=== PATIENT | male | born 1990 | race Caucasian/White ===

== ENCOUNTER 2024-10-02 23:39 | Emergency (ER) | payer OTHER, SELFPAY ==
[2024-10-02 23:49] VITALS: BP 133/98; BMI 26.5
[2024-10-03 00:45] LABS: % Basophils 0.5 % (0-2); % Immature Granulocytes 0.4 % (0-0.5); % Lymphocytes 25.4 % (20.5-51.1); % Monocytes 4.3 % (1.7-9.3); % Neutrophils 68.4 % (42.2-75.2); Absolute Basophils 0.1 10^3/uL (0-0.2); Absolute Eosinophils 0.1 10^3/uL (0-0.7); Absolute Immature Granulocytes 0.1 10^3/uL (0-0.05); Absolute Lymphocytes 3.2 10^3/uL (1.2-3.4); Absolute Monocytes 0.6 10^3/uL (0.1-0.6); Absolute Neutrophils 8.7 10^3/uL (1.4-6.5); Hematocrit 45.2 % (39.0-52.0); Hemoglobin 15.5 g/dL (13.0-18.0); Mean Corp Hgb Conc. 34.3 g/dL (33.0-37.0); Mean Corpuscular Hgb 30.5 pg (27.0-31.0); Mean Corpuscular Volume 88.8 fL (80.0-94.0); Mean Platelet Volume 8.3 fL (7.4-10.4); Nucleated Red Blood Cells % 0 % (-); Platelet Count 185 10^3/uL (130-400); Red Blood Cell Count 5.09 10^6/uL (4.70-6.10); Red Cell Dist. Width 13.8 % (11.5-14.5); White Blood Cell Count 12.8 10^3/uL (4.8-10.8)
[2024-10-03 00:54] LABS: ALT (SGPT) 24 U/L (0-50); AST (SGOT) 40 U/L (17-59); Acetaminophen < 10 ug/ml (10-30); Albumin 5.4 g/dl (3.5-5.0); Alcohol 188 mg/dl; Alkaline Phosphatase 57 U/L (38-126); Blood Urea Nitrogen 15 mg/dl (9-20); Calcium 9.6 mg/dl (8.4-10.2); Carbon Dioxide 25 mmol/L (22-30); Chloride 103 mmol/L (98-107); Estimated Creatinine Clearance 117 ml/min; Glucose 112 mg/dl (70-99); Potassium 4.6 mmol/L (3.5-5.1); Salicylate < 1.0 mg/dl (2.0-20.0); Sodium 141 mmol/L (135-145); Total Bilirubin 1.3 mg/dl (0.2-1.3); Total Protein 8.6 g/dl (6.3-8.2); eGFR > 60.00
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
[2024-10-03 01:53] LABS: Urine Albumin 2+ (Neg - Trace); Urine Bilirubin Negative (Negative); Urine Character Clear (Clear); Urine Color Yellow; Urine Glucose Negative (Negative); Urine Ketone Negative (Negative); Urine Leukocyte Negative (Negative); Urine Nitrite Negative (Negative); Urine Occult Blood Negative (Negative); Urine Urobilinogen Negative (Neg - 1+)
[2024-10-03 02:13] LABS: Lithium 0.5 mmol/L (0.6-1.2)
[2024-10-03 02:28] LABS: Amphetamines Negative (Negative); Barbiturates Negative (Negative); Benzodiazepines Negative (Negative); Buprenorphine Negative (Negative); Cocaine Negative (Negative); Marijuana Negative (Negative); Methadone Negative (Negative); Methamphetamines Negative (Negative); Opiates Negative (Negative); Phencyclidine Negative (Negative); Tricyclic Antidepressants Positive (Negative)
[2024-10-03 02:46] LABS: Urine Mucus Few; Urine Red Blood Cell 0-2 /HPF (0-2); Urine Squamous Cell 0-2 /LPF (Few); Urine White Cell 0-2 /HPF (0-5)
[2024-10-03 09:20] VITALS: BP 132/92
[2024-10-03] MEDS: NEURONTIN 800 MG PO (10:39)
[2024-10-03] MEDS: SEROQUEL 200 MG PO (10:39)
[2024-10-03] MEDS: CATAPRES 0.1 MG PO (10:39)
[2024-10-03] MEDS: KLONOPIN 0.5 MG PO (10:41)
[2024-10-03] MEDS: SUBUTEX 2 MG SL (10:41)
[2024-10-03] MEDS: EFFEXOR XR 150 MG PO (11:00)
[2024-10-03] MEDS: SUBUTEX 6 MG SL (11:15)
== END 2024-10-03 11:25 ==
LOC: EMR 23:39
PROVIDERS: EMERGENCY PHYSICIAN Student in an Organized Health Care Education/Training Program
DX: F23 Brief psychotic disorder (principal); F33.9 Major depressive disorder, recurrent, unspecified; F90.9 Attention-deficit hyperactivity disorder, unspecified type; Z76.5 Malingerer [conscious simulation]; F11.20 Opioid dependence, uncomplicated; F17.200 Nicotine dependence, unspecified, uncomplicated; F43.10 Post-traumatic stress disorder, unspecified; F41.9 Anxiety disorder, unspecified; G89.29 Other chronic pain; M25.561 Pain in right knee; Z56.0 Unemployment, unspecified
CPT/HCPCS: 99285; 70160; 70450; 80053; 80143; 80178; 80179; 80306; 81003; 81015; 82077; 85025

== ENCOUNTER 2025-03-06 20:24 | Emergency (ER) | payer OTHER, SELFPAY ==
[2025-03-06 20:31] VITALS: BP 138/84; BMI 27.3
--- NOTE | 2025-03-06 20:56 | ED.GENMED ---
History of Present Illness
General
Chief Complaint: Crisis Evaluation
Source: patient
Exam Limitations: none
Time Seen by Provider: 03/06/25 20:41
History of Present Illness
History of Present Illness:
34 male presents with depression history of the same has been admitted previously been drinking today apparently meds been changed, denies being actively suicidal would like to get some help, he goes to [facility]
Denies any overdose
Past History
Past History
ED Past Medical History: Psychiatric and Other (Chronic right knee pain)
ED Past Surgical History: Orthopedic (Arthroscopy right knee October 2011)
Social History
Tobacco: Smoker
Alcohol: Occasional
Drug: Narcotics
Personal: Single
Living: with family
Employment: Not employed
Family History
Family History: Other (Noncontributory)
Review of Systems
Review of Systems
All Other Systems: Not applicable
Constitutional: Denies fever or fatigue
Psychiatric: Reports depression and anxiety; Denies suicidal
Phy Exam
Physical Exam
Physical Exam:
Physical Exam
General: Intoxicated male cooperative
Neck: No jaundice no tongue
Heart: s1/s2 regular rate and rhythm, no murmur. equal radial pulses.
Lungs: no acute respiratory distress. clear bilaterally
Neuro: alert and oriented. no focal neurological deficits
Skin: no rash
Psychiatric: Flat affect cooperative mid to depression not suicidal
Extremities: no edema.
Course
Orders/Labs/Results
Orders:
Orders
03/06/25 20:38
1:1 Observation - Suicide/ Violent Behavior As Directed
Crisis Consult Urgent
Reason for Consult: + SI, depression
03/06/25 20:46
Alcohol Urgent
Basic Metabolic Panel Urgent
Complete Blood Count/With Diff Urgent
Fentanyl, Urine Urgent
Manual Differential Urgent
Urine Drug Abuse Screen Urgent
Date Specimen was Collected: 03/06/25
Time Specimen was Collected: 20:39
03/07/25 00:51
Clonazepam [Klonopin] 1 mg PO NOW STA
Gabapentin [Neurontin] 600 mg PO NOW STA
Quetiapine Fumarate [Seroquel] 200 mg PO NOW STA
Abnormal Lab Results
03/06/25
20:46
MCH 31.6 H pg
(27.0-31.0)
Segmented Neutrophils 34 L %
(42-75)
Glucose 118 H mg/dl
(70-99)
Ur Tricyclics Screen Positive H
(Negative)
U Benzodiazepines Scrn Positive H
(Negative)
03/06/25 20:46
03/06/25 20:46
Vital Signs
Initial and Last Documented VS:
Initial Vital Signs
Pulse Resp BP Pulse Ox
84 18 138/84 94
03/06/25 20:31 03/06/25 20:31 03/06/25 20:31 03/06/25 20:31
Last Documented Vital Signs
Pulse Resp BP Pulse Ox
84 18 138/84 94
03/06/25 20:31 03/06/25 20:31 03/06/25 20:31 03/06/25 20:59
MDM/Problems Addressed
Differential Diagnosis Includes:
Intoxication depression anxiety not suicidal
MDM/Problems Addressed:
Substance abuse, mental illness
Chronic conditions affecting care: Psychiatric illness
Acute Exacerbation and/or Progression of Chronic Illness: Psychiatric illness
*Pulse Oximetry
SaO2: 94
Oxygen Mode of Delivery: Room air
Patient hypoxic: no
*Critical Care Note
Total Time (30-74mins, 75-104mins- exclusive of procedures): Not Applicable
Update Note
Update Note:
10 PM reviewed with crisis patient cleared for discharge has follow-up arranged he wants to get his meds adjusted as an outpatient which would be most appropriate for him, he is intoxicated here we will monitor until he is more sober and/or has an
adult to take him home
ED Attending Note
-
Portions of this chart may have been created with voice recognition software.� Occasional wrong word or��sound alike� substitutions may have occurred due to the inherent limitations of voice recognition software.
Discharge Plan
Departure
Patient Disposition: Home (Routine Discharge)
Date of Disposition: 03/06/25
Time of Disposition: 23:22
Patient with high blood pressure during this ER visit?: No
Condition: Good
Discharge Problem:
Anxiety
Instructions: Anxiety, Adult (DC), Drug and Alcohol Abuse Information
Prescriptions:
No Action
clonazepam 0.5 mg Tablet
1 mg PO DAILY
quetiapine [Seroquel] 200 mg Tablet
200 mg PO HS
buprenorphine-naloxone 8-2 mg Film
1 film BUCCAL BID
venlafaxine 37.5 mg Capsule,Extended Release 24hr
37.5 mg PO DAILY
Rx Instructions:
03/06/2025, take w/ 75 mg for a total of 112.5 mg.
venlafaxine 75 mg Capsule,Extended Release 24hr
75 mg PO DAILY
Rx Instructions:
03/06/2025, take w/ 37.5 mg for a total of 112.5 mg.
gabapentin 600 mg Tablet
600 mg PO TID
clonazepam 0.5 mg Tablet
0.5 mg PO BID
Patient Comments:
03/06/2025, afternoon and evening doses.
cyanocobalamin (vitamin B-12) 1,000 mcg Tablet
1,000 mcg PO DAILY
quetiapine [Seroquel] 100 mg Tablet
100 mg PO BID
clonidine HCl 0.2 mg Tablet
0.2 mg PO BID
ibuprofen [Advil] 200 mg Tablet
600 mg PO TIDPRN PRN (Reason: mild pain)
Referrals:
UNKNOWN - PT NOT,INTERVIEWE [Family Provider]
Interventions
Interventions:
*Risk Screen - Suicide Last Done: 03/06/25 20:35
*General Assessment Last Done: 03/06/25 20:35
*Neglect/Abuse Screening Last Done: 03/06/25 20:35
*ED- Fall Risk Assessment Last Done: 03/06/25 20:35
*ED COVID-19 Vaccine History Last Done: 03/06/25 20:35
*Nursing Disposition Last Done: 03/07/25 02:33
ED-Psychological Assessment Last Done: 03/06/25 20:52
Discharge Date and Time
Discharge Date/Time: 03/07/25 02:34
Print Language: MONTENEGRIN
[2025-03-06 21:10] LABS: Blood Urea Nitrogen 16 mg/dl (9-20); Calcium 8.9 mg/dl (8.4-10.2); Carbon Dioxide 23 mmol/L (22-30); Chloride 102 mmol/L (98-107); Estimated Creatinine Clearance 117 ml/min; Glucose 118 mg/dl (70-99); Potassium 3.8 mmol/L (3.5-5.1); Sodium 139 mmol/L (135-145); eGFR > 60.00
[2025-03-06 21:48] LABS: Hematocrit 41.9 % (39.0-52.0); Hemoglobin 15.3 g/dL (13.0-18.0); Mean Corp Hgb Conc. 36.5 g/dL (33.0-37.0); Mean Corpuscular Volume 86.6 fL (80.0-94.0); Platelet Count 131 10^3/uL (130-400); Red Cell Dist. Width 12.9 % (11.5-14.5)
[2025-03-06 21:49] LABS: Normal RBC Morphology No; Platelets Checked Yes; Smudge Cells 1+; Stomatocytes 2+; Total Cells Counted 100
[2025-03-07] MEDS: KLONOPIN 1 MG PO (00:59)
[2025-03-07] MEDS: NEURONTIN 600 MG PO (00:59)
[2025-03-07] MEDS: SEROQUEL 200 MG PO (00:59)
== END 2025-03-07 02:34 | disposition home or self-care (01) ==
LOC: EMR 20:24
PROVIDERS: EMERGENCY PHYSICIAN Emergency Medicine
DX: F41.9 Anxiety disorder, unspecified (principal); F17.200 Nicotine dependence, unspecified, uncomplicated
CPT/HCPCS: 99283; 80048; 80306; 80307; 82077; 85025